=== PATIENT | male | born 1985 | race African-American/Black ===

== ENCOUNTER 2024-05-11 17:07 | Emergency (ER) | payer MEDICAID, OTHER ==
[~2024-05-11] VITALS: Ht 182.9 cm; Wt 82.0 kg
[2024-05-11 17:09] VITALS: O2SAT 100
[2024-05-11] MEDS: SODIUM CHLORIDE 0.9% 1,000 ML IV ONE ×2 (18:18→19:29)
[2024-05-11 18:23] LABS: BASOPHILS % 1.1 % (0.0-2.0); DIFFERENTIAL COMMENT 0; EOSINOPHILS % 0.8 % (0.0-5.0); HEMATOCRIT. 44.4 % (42.0-52.0); HEMOGLOBIN. 14.2 g/dL (14.0-18.0); LYMPHOCYTES % 21.8 % (20.0-50.0); MEAN CORPUSCULAR HEMOGLOBIN 25.3 pg (28.0-32.0); MEAN PLATELET VOLUME 8.2 fl (7.4-10.4); MONOCYTES % 8.5 % (2.0-8.0); NEUTROPHILS % 67.8 % (40.0-76.0); PLATELET 303 x1000/uL (130-400); RED BLOOD CELL COUNT 5.61 mill/uL (4.7-6.1); RED CELL DISTRIBUTION WIDTH 13.9 % (11.6-14.6); WHITE BLOOD COUNT 11.5 x1000/uL (4.5-11.0)
[2024-05-11 18:26] LABS: CHLORIDE 101 mEq/L (98-107); POTASSIUM 4.2 mEq/L (3.5-5.1); SODIUM 135 mEq/L (136-145)
[2024-05-11 18:27] LABS: CALCIUM 9.9 mg/dL (8.7-10.4); CARBON DIOXIDE 24 mEq/L (21-32)
[2024-05-11 18:32] LABS: CREATININE 1.5 mg/dL (0.6-1.3); GLUCOSE 260 mg/dL (70-105); UREA NITROGEN BLOOD 15 mg/dL (9-23)
[2024-05-11 18:33] LABS: ETHANOL BLOOD < 10 mg/dL (<10)
[2024-05-11] MEDS: ACETAMINOPHEN 325MG TABLET PO ONE (19:29)
[2024-05-11] MEDS: LORAZEPAM 2MG/ML INJ IV ONE (19:29)
[2024-05-11] MEDS ORDERED: SODIUM CHLORIDE 0.9% 1,000 ML IV ONE ×2 (21:15→22:00)
[2024-05-11 21:20] LABS: CLARITY URINE CLEAR (CLEAR); COLOR URINE YELLOW (YELLOW); GLUCOSE URINE 3+ (NEGATIVE); KETONES URINE 2+ (NEGATIVE); LEUKOCYTE ESTERASE URINE NEGATIVE (NEGATIVE); NITRITE URINE NEGATIVE (NEGATIVE); OCCULT BLOOD URINE NEGATIVE (NEGATIVE); PH URINE 5.5 (4.5-8.0); PROTEIN URINE 1+ (NEGATIVE); SPECIFIC GRAVITY URINE 1.022 (1.005-1.030); UROBILINOGEN URINE 0.2 E.U./dL (0.2-1.0)
[2024-05-11 21:34] LABS: *AMPHETAMINES SCREEN URINE NEGATIVE (NEGATIVE); *BARBITURATES SCREEN URINE NEGATIVE (NEGATIVE); *BENZODIAZEPINES SCREEN URINE NEGATIVE (NEGATIVE); *COCAINE SCREEN URINE NEGATIVE (NEGATIVE)
[2024-05-11 21:35] LABS: CANNABINOID URINE SCREEN PRESUMPTIVE POSITIVE (NEGATIVE); ECSTASY MDMA SCREEN URINE NEGATIVE (NEGATIVE); METHADONE URINE SCREEN NEGATIVE (NEGATIVE); OPIATES URINE SCREEN NEGATIVE (NEGATIVE); PHENCYCLIDINE URINE SCREEN NEGATIVE (NEGATIVE)
[2024-05-11 21:46] LABS: BACTERIA URINE TRACE; RBC URINE NONE SEEN /hpf (0-2); SQUAMOUS EPITHELIAL CELL URINE RARE /lpf (RARE/1+); WBC URINE 0-2 /hpf (0-2)
[2024-05-11 21:57] LABS: THYROID STIMULATING HORMONE 1.95 uIU/mL (0.55-4.78)
[2024-05-11 22:52] VITALS: BP 143/79; PULSE 106; RESP 18; TEMP 97.7
== END 2024-05-11 22:53 | disposition home or self-care (01) ==
LOC: ER 17:26
DX: M79.672 Pain in left foot (principal); J45.909 Unspecified asthma, uncomplicated; E11.9 Type 2 diabetes mellitus without complications; R56.9 Unspecified convulsions
CPT/HCPCS: 80305; 80048; 81003; 80320; 82550; 82962; 84443; 85025; 36415; 73630; 93005; 96361; 96374; 99285; J2060; J7030; Z7610 ×2; G0480

== ENCOUNTER 2024-05-14 11:38 | Inpatient (IN) | payer OTHER ==
[~2024-05-14] VITALS: Ht 177.8 cm; Wt 72.1 kg
[2024-05-14] MEDS: ONDANSETRON HCL 4MG/2ML INJ IV STA (11:44)
[2024-05-14] MEDS: ACETAMINOPHEN 1000MG/100ML 100 ML IV ONE (13:05)
[2024-05-14] MEDS: SODIUM CHLORIDE 0.9% 1,000 ML IV ONE (13:05)
[2024-05-14 13:17] LABS: BASOPHILS % 0.9 % (0.0-2.0); DIFFERENTIAL COMMENT 0; EOSINOPHILS % 1.2 % (0.0-5.0); HEMATOCRIT. 42.7 % (42.0-52.0); HEMOGLOBIN. 13.6 g/dL (14.0-18.0); LYMPHOCYTES % 29.9 % (20.0-50.0); MEAN CORPUSCULAR HEMOGLOBIN 25.4 pg (28.0-32.0); MEAN CORPUSCULAR HGB CONC 31.9 g/dL (31.0-37.0); MEAN CORPUSCULAR VOLUME 79.5 fL (80.0-94.0); MEAN PLATELET VOLUME 8.6 fl (7.4-10.4); MONOCYTES % 11.8 % (2.0-8.0); NEUTROPHILS % 56.2 % (40.0-76.0); PLATELET 230 x1000/uL (130-400); RED BLOOD CELL COUNT 5.36 mill/uL (4.7-6.1); RED CELL DISTRIBUTION WIDTH 14.1 % (11.6-14.6); WHITE BLOOD COUNT 6.7 x1000/uL (4.5-11.0)
[2024-05-14 13:22] LABS: CHLORIDE 98 mEq/L (98-107); POTASSIUM 4.5 mEq/L (3.5-5.1); SODIUM 131 mEq/L (136-145)
[2024-05-14 13:23] LABS: CARBON DIOXIDE 24 mEq/L (21-32)
[2024-05-14 13:28] LABS: CREATININE 1.3 mg/dL (0.6-1.3); UREA NITROGEN BLOOD 10 mg/dL (9-23)
[2024-05-14 13:29] LABS: TROPONIN I HIGH SENSITIVITY 4 ng/L (3.0-53)
[2024-05-14 13:30] LABS: BETA HYDROXYBUTYRATE 0.4 mMol/L (0.0-0.3)
[2024-05-14 14:03] LABS: GLUCOSE 506 mg/dL (70-105)
[2024-05-14 14:47] LABS: CLARITY URINE CLEAR (CLEAR); COLOR URINE YELLOW (YELLOW); GLUCOSE URINE 3+ (NEGATIVE); KETONES URINE TRACE (NEGATIVE); LEUKOCYTE ESTERASE URINE NEGATIVE (NEGATIVE); NITRITE URINE NEGATIVE (NEGATIVE); OCCULT BLOOD URINE NEGATIVE (NEGATIVE); PROTEIN URINE NEGATIVE (NEGATIVE); SPECIFIC GRAVITY URINE 1.021 (1.005-1.030)
[2024-05-14 15:10] LABS: BACTERIA URINE NONE SEEN; RBC URINE 0-2 /hpf (0-2); SQUAMOUS EPITHELIAL CELL URINE RARE /lpf (RARE/1+); WBC URINE 0-2 /hpf (0-2); YEAST URINE NONE SEEN
[2024-05-14] MEDS: INSULIN REGULAR (HUMULIN R) 1000UNITS/10ML VIAL IV ONE (15:19)
[2024-05-14] MEDS ORDERED: HYDROCHLOROTHIAZIDE 25MG TABLET PO SCH (16:00)
[2024-05-14] MEDS ORDERED: GABA-532 PO (16:02)
[2024-05-14] MEDS ORDERED: BENA-8 PO (16:02)
[2024-05-14] MEDS ORDERED: HYDR25TA PO (16:02)
[2024-05-14] MEDS ORDERED: AMLO10TA80 PO (16:02)
[2024-05-14] MEDS ORDERED: BENAZEPRIL 10MG TABLET PO SCH (16:30)
[2024-05-14] MEDS: AMLODIPINE 10MG TABLET PO SCH (16:34)
[2024-05-14] MEDS: LISINOPRIL 10MG TABLET PO SCH (16:35)
[2024-05-14] MEDS: GABAPENTIN 300MG CAPSULE PO SCH (17:12)
[2024-05-14] MEDS ORDERED: DEXTROSE 50% WATER 50ML SYRINGE IV PRN (18:00)
[2024-05-14] MEDS ORDERED: LABETALOL 5MG/ML 4ML INJ IV PRN (18:15)
[2024-05-14] MEDS: INSULIN LISPRO 100 UNITS/ML SUBCUT SCH (18:42)
[2024-05-14] MEDS ORDERED: IPRATROPIUM/ALBUTEROL 0.5-3(2.5)MG/3ML NEB HHN PRN (18:45)
[2024-05-14] MEDS ORDERED: INSULIN GLARGINE 100 UNITS/ML SUBCUT NR (20:00)
[2024-05-14 20:30] VITALS: BP 106/67; PULSE 104; RESP 20; TEMP 98.7
[2024-05-14] MEDS: BLOOD SUGAR DIAGNOSTIC STRIP TEST SCH (21:14)
[2024-05-14 23:36] VITALS: BP 139/72; PULSE 83; RESP 18; TEMP 97.7
[2024-05-14 23:47] VITALS: BP 139/72; PULSE 83; RESP 18; TEMP 97.7
[2024-05-15] MEDS: ACETAMINOPHEN 325MG TABLET PO PRN (00:46)
[2024-05-15] MEDS: LORAZEPAM 2MG/ML INJ IV PRN (00:46)
[2024-05-15] MEDS: ONDANSETRON HCL 4MG/2ML INJ IV PRN (00:53)
[2024-05-15 04:00] VITALS: BP 120/86; PULSE 101; RESP 17; TEMP 97.8
[2024-05-15 06:46] LABS: BASOPHILS % 0.8 % (0.0-2.0); DIFFERENTIAL COMMENT 0; EOSINOPHILS % 3.4 % (0.0-5.0); HEMATOCRIT. 39.8 % (42.0-52.0); HEMOGLOBIN. 12.9 g/dL (14.0-18.0); LYMPHOCYTES % 37.7 % (20.0-50.0); MEAN CORPUSCULAR HEMOGLOBIN 25.3 pg (28.0-32.0); MEAN CORPUSCULAR HGB CONC 32.3 g/dL (31.0-37.0); MEAN CORPUSCULAR VOLUME 78.4 fL (80.0-94.0); MEAN PLATELET VOLUME 8.3 fl (7.4-10.4); MONOCYTES % 9.6 % (2.0-8.0); NEUTROPHILS % 48.5 % (40.0-76.0); PLATELET 266 x1000/uL (130-400); RED BLOOD CELL COUNT 5.08 mill/uL (4.7-6.1); RED CELL DISTRIBUTION WIDTH 13.8 % (11.6-14.6)
[2024-05-15 06:50] LABS: CALCIUM 9.4 mg/dL (8.7-10.4); CARBON DIOXIDE 24 mEq/L (21-32); CHLORIDE 102 mEq/L (98-107); POTASSIUM 4.5 mEq/L (3.5-5.1); SODIUM 133 mEq/L (136-145)
[2024-05-15 06:55] LABS: CREATININE 1.2 mg/dL (0.6-1.3); IRON 114 ug/dL (65-175)
[2024-05-15 06:56] LABS: LDL CHOLESTEROL 65 mg/dL (5-100); TRIGLYCERIDE 111 mg/dL (0-150); UREA NITROGEN BLOOD 7 mg/dL (9-23)
[2024-05-15 06:57] LABS: ALANINE AMINOTRANSFERASE 21 IU/L (10-49); ALBUMIN 4.3 g/dL (3.2-4.8); ASPARTATE AMINOTRANSFERASE 26 IU/L (<34); BILIRUBIN DIRECT 0.2 mg/dL (<=3.0); CHOLESTEROL 156 mg/dL (<200); HDL CHOLESTEROL 70 mg/dL (>55); TOTAL IRON BINDING CAPACITY 74 ug/dl (250-425)
[2024-05-15 06:58] LABS: BILIRUBIN TOTAL 0.7 mg/dL (0.1-1.0); PROTEIN TOTAL 6.9 g/dL (6.0-8.3)
[2024-05-15 07:02] LABS: T4 FREE 1.29 ng/dL (0.89-1.76); THYROID STIMULATING HORMONE 1.47 uIU/mL (0.55-4.78)
[2024-05-15 07:05] LABS: GLUCOSE 331 mg/dL (70-105)
[2024-05-15 08:00] VITALS: BP 134/86; PULSE 110; RESP 20; TEMP 97
[2024-05-15] MEDS: INSULIN GLARGINE 100 UNITS/ML SUBCUT SCH (09:29)
[2024-05-15 12:00] VITALS: BP 146/44; PULSE 125; RESP 20; TEMP 97.7
[2024-05-15] MEDS: SODIUM CHLORIDE 0.9% 1,000 ML IV ONE (13:22)
[2024-05-15] MEDS ORDERED: DEXTROSE 50% WATER 50ML SYRINGE IV PRN (13:45)
[2024-05-15 16:00] VITALS: BP 140/91; PULSE 113; RESP 20; TEMP 97.6
[2024-05-15] MEDS: BLOOD SUGAR DIAGNOSTIC STRIP TEST SCH (17:10)
[2024-05-15] MEDS ORDERED: KETOROLAC 30MG/ML VIAL IV PRN ×2 (17:30)
[2024-05-15] MEDS: INSULIN LISPRO 100 UNITS/ML SUBCUT SCH (17:58)
[2024-05-15 18:44] LABS: CREATINE KINASE 205 IU/L (46-171)
[2024-05-15 20:00] VITALS: BP 136/72; PULSE 86; RESP 18; TEMP 97.7
[2024-05-15] MEDS: METOPROLOL TARTRATE 25MG TABLET PO SCH (22:14)
[2024-05-16] VITALS: BP 138/70; PULSE 83; RESP 18; TEMP 97.7
[2024-05-16 04:00] VITALS: BP 136/70; PULSE 89; RESP 18; TEMP 98
[2024-05-16 06:47] LABS: HEMATOCRIT 40.7 % (42.0-52.0); HEMOGLOBIN 13.2 g/dL (14.0-18.0); MEAN CORPUSCULAR HEMOGLOBIN 25.5 pg (28.0-32.0); MEAN CORPUSCULAR HGB CONC 32.5 g/dL (31.0-37.0); MEAN CORPUSCULAR VOLUME 78.5 fL (80.0-94.0); PLATELET 268 x1000/uL (130-400); RED BLOOD CELL COUNT 5.19 mill/uL (4.7-6.1); RED CELL DISTRIBUTION WIDTH 13.9 % (11.6-14.6); WHITE BLOOD COUNT 5.7 x1000/uL (4.5-11.0)
[2024-05-16 06:54] LABS: CARBON DIOXIDE 24 mEq/L (21-32); CHLORIDE 102 mEq/L (98-107); POTASSIUM 4.8 mEq/L (3.5-5.1); SODIUM 134 mEq/L (136-145)
[2024-05-16 06:55] LABS: CALCIUM 9.5 mg/dL (8.7-10.4)
[2024-05-16 07:00] LABS: CREATININE 1.2 mg/dL (0.6-1.3); GLUCOSE 315 mg/dL (70-105); UREA NITROGEN BLOOD 13 mg/dL (9-23)
[2024-05-16 08:00] VITALS: BP 141/96; PULSE 97; RESP 18; TEMP 98.8
[2024-05-16] MEDS: INSULIN LISPRO 100 UNITS/ML SUBCUT SCH (08:32)
[2024-05-16] MEDS: LISINOPRIL 20MG TABLET PO SCH (08:36)
[2024-05-16 12:00] VITALS: BP 131/90; PULSE 89; RESP 18; TEMP 97.9
[2024-05-16 16:00] VITALS: BP 141/92; PULSE 97; RESP 18; TEMP 97.7
[2024-05-16 20:00] VITALS: BP 136/72; PULSE 86; RESP 18; TEMP 97.7
[2024-05-17] VITALS: BP 132/72; PULSE 83; TEMP 97.8
[2024-05-17 04:00] VITALS: BP 128/72; PULSE 86; RESP 18; TEMP 98
[2024-05-17 05:03] VITALS: BP 128/72; PULSE 86; RESP 18; TEMP 98
[2024-05-17 08:00] VITALS: BP 145/90; PULSE 106; RESP 18; TEMP 98.2
[2024-05-17] MEDS ORDERED: LANTUSUD SUBCUT (12:42)
[2024-05-17] MEDS ORDERED: CARV3.1242 MT (12:42)
[2024-05-17 14:53] VITALS: BP 139/89; PULSE 101; TEMP 98.2; O2SAT 99
[2024-05-17] MEDS ORDERED: IBUP-2030 PO (17:06)
== END 2024-05-17 19:01 | DRG 639 ==
LOC: ER 11:38 → EDBEDREQ 12:09 → 5WST 13:58 → EDBEDREQ 14:01 → EDBEDREQTM 14:01 → 8WST 22:20
PROVIDERS: ADMIT Preventive Medicine Clinical Informatics; ATTEND Preventive Medicine Clinical Informatics
DX: E10.10 Type 1 diabetes mellitus with ketoacidosis without coma (principal); E78.5 Hyperlipidemia, unspecified; E10.42 Type 1 diabetes mellitus with diabetic polyneuropathy; I10 Essential (primary) hypertension; F41.9 Anxiety disorder, unspecified; G40.909 Epilepsy, unspecified, not intractable, without status epilepticus; D50.9 Iron deficiency anemia, unspecified; G43.909 Migraine, unspecified, not intractable, without status migrainosus; S92.342A Displaced fracture of fourth metatarsal bone, left foot, initial encounter for closed fracture; S92.322A Displaced fracture of second metatarsal bone, left foot, initial encounter for closed fracture; R07.9 Chest pain, unspecified; S92.332A Displaced fracture of third metatarsal bone, left foot, initial encounter for closed fracture; X58.XXXA Exposure to other specified factors, initial encounter; R13.10 Dysphagia, unspecified; J45.909 Unspecified asthma, uncomplicated; Z88.6 Allergy status to analgesic agent; Z88.8 Allergy status to other drugs, medicaments and biological substances; Z79.899 Other long term (current) drug therapy; Z79.4 Long term (current) use of insulin; Y93.89 Activity, other specified; Y92.89 Other specified places as the place of occurrence of the external cause; Y99.8 Other external cause status
CPT/HCPCS: 36415; 71045; 73610; 73630; 80048; 80061; 80076; 81003; 82010; 82550; 82728; 82962; 83036; 83540; 83550; 83605; 84145; 84439; 84443; 84481; 84484; 85025; 85027; 93005; 99285; J1815; J2060; J2405; J7030; J0131